=== PATIENT | male | born 1945 | race Caucasian/White ===

== ENCOUNTER 2017-04-20 19:45 | Emergency (ER) | payer MEDICARE, OTHER ==
[~2017-04-20] VITALS: Ht 180.3 cm; Wt 129.6 kg
[~2017-04-20 19:45] MED LIST: ASPI81TA3 PO; ATEN50TA PO; DULO60CA42 PO; ENAL20TA PO; ESOM40CA41 PO; FERR325T40 PO; TIOT18CA3 IH; TROS60CA4 PO; WARF2TAB7 PO; WARF4TAB6 PO; [UNRECOGNIZED DRUG - OTHER] IM
[2017-04-20 19:49] VITALS: BP 153/76; PULSE 74; RESP 16; O2SAT 99
[2017-04-20] MEDS ORDERED: HYDROmorphone 1 mg/mL Inj IVPUSH ONE (21:25)
[2017-04-20 21:52] LABS: APPEARANCE,URINE CLOUDY (CLEAR,HAZY); COLOR,URINE BLOODY (YELLOW); PH,URINE 5.5 (5.0-8.0)
--- NOTE | 2017-04-20 21:52 | ED.REPORT ---
HPI- Male Date of Service Apr 20, 2017 ED Provider: Jaren Hernandez DO Gaitan is a 71-year-old male with history of prostate cancer presents to the ED with pain due to their inability to urinate since 3 PM this afternoon. A similar incident happened 2 weeks ago the patient noted that he was able to pass a blood clot. In 2007 patient noted that a urologist had a split his urethra by trying to dilate him using metal rods. He ended up needing Reconstruction of his urethra and since then he has always passed blood clots. He notes that he is obstructed fairly often and he tends to cath himself but today he was unable to do so. Denies any fevers or chills. Nursing Notes Stated Complaint: CANNOT URINATE Chief Complaint: General Complaint Nursing Notes Reviewed: Yes Allergies: Coded Allergies: Penicillins (Verified Allergy, Unknown, 07/05/14) morphine (Verified Allergy, Unknown, 10/14/15) Scheduled Aspirin Chew (Aspirin Chew) 81 Mg Chew 81 MG PO DAILY Atenolol (Atenolol) 50 Mg Tablet 50 MG PO DAILY Ciprofloxacin (Ciprofloxacin) 500 Mg Tablet 500 MG PO BID Duloxetine (Cymbalta) 60 Mg Capsule. 60 MG PO DAILY Enalapril Maleate (Enalapril Maleate) 20 Mg Tablet 20 MG PO DAILY Esomeprazole Magnesium (Nexium) 40 Mg Capsule.dr 40 MG PO DAILY Ferrous Sulfate (Iron) 325 Mg Tablet 325 MG PO DAILY Leuprolide Acetate (Lupron Depot) 7.5 Mg Disp.syrin Unknown Dose IM 3 months Tiotropium [place] (Spiriva) 18 Mcg Cap.w.dev 18 MCG IH DAILY Trospium Chloride ER (Trospium Chloride ER) 60 Mg Cap.er.24h 60 MG PO DAILY Warfarin Sodium (Warfarin Sodium) 2 Mg Tablet 3 MG PO M,T,W,Th,F,Sa Warfarin Sodium (Warfarin Sodium) 4 Mg Tablet 4 MG PO [place] General Time Seen by MD: 20:28 Chief Complaint Unable to urinate Hx Obtained From: Patient Arrived By: Walk-in Onset Occurred: 5 - 8 hours ago Symptom Duration: Constant Location: : Suprapubic Quality: Sharp Severity: Maximum: Pain level 10 out of 10 Past Medical History Past Medical History Notes: Prostate cancer treated with radiation seeds 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 Obesity. He weighs 136 kg. 2. Diet-controlled diabetes. 3. Arthritis. 4. Chronic pain, primarily in right ankle and foot, related to old injury. 5. Obstructive uropathy. 6. Dyslipidemia. 7. Hypertension. 8. COPD. 9. Depression. 10. Gastroesophageal reflux disease. 11. Prostate cancer without bony mets. 12. DVT 13. PE Reports: COPD, Diabetes mellitus, GERD, Hypertension Past Surgical History 4 prior back surgeries. 2 R shoulder surgeries. R elbow, r foot. Prostate seed implant. Urethral reconstruction Smoking History Former Smoker Social History Alcohol Use: Denies alcohol use Drug Use: Denies drug use Ambulatory Status Independent Review of Systems Basic Review of Systems Eyes: Vision NL, No discharge ENT: Hearing NL, No pain, No nasal congestion, No pharyngeal pain Respiratory: No shortness of breath, No cough, No wheeze Cardiovascular: No chest pain, No dyspnea on exertion, No orthopnea, No parox noct dyspnea, No palpitations Hematologic: No bleeding, No bruising Neurologic: NL mental status, No weakness, No numbness Psychiatric: Normal thought content Constitutional: Denies: Chills, Fever GI: Denies: Nausea, Vomiting Male: Reports Hematuria, Denies Flank pain, Denies Penile discharge Musculoskeletal: Reports: Back pain Complete sys rev & neg: except as marked. Physical Exam Initial Vital Signs Vital Signs (First) Date Time Temp Pulse Resp B/P Pulse Ox O2 Delivery O2 Flow Rate FiO2 04/20/17 19:49 36.1 74 16 153/76 99 Room Air General/Constitutional: Well-developed, Well-nourished Head / Eyes: Atraumatic, Normocephalic, PERRL Respiratory: Breath sounds normal, Clear to auscultation, No respiratory distress Cardiovascular: Regular rate & rhythm, Heart sounds normal, Intact distal pulses Abdomen / GI: Soft, Non-tender, No guarding, No rebound, No distention Back: No CVA tenderness Lymphatic: No lymphadenopathy Extremities: Vascular intact, Neuro intact, No swelling, No tenderness Skin: Warm, Dry, No cyanosis Neurologic: Alert, Oriented, Nonfocal Psychiatric: Mood/affect normal, Behavior normal, Normal thought content Male Genitourinary: Inspection NL, Penis NL, No penile discharge, Testes NL, Cremasteric reflex NL, Epididymis NL, No mass, No hernia, No lesions or rash Interpretation & Diagnostics Lab Results Interpretation Result Diagram: 04/20/17221104/20/172211 Test 04/20/17 21:37 04/20/17 21:41 04/20/17 22:12 Hold Urine Received (Received) Urine Color Bloody (YELLOW) Urine Appearance Cloudy (CLEAR,HAZY) Urine pH 5.5 (5.0-8.0) Urine Specific [place] 1.020 (1.003-1.035) Urine Protein 100mg/dL (NEG,TRACE) Urine Glucose (UA) Negativemg/dL (NEGATIVE) Urine Ketones Negativemg/dL (NEGATIVE) Urine Occult Blood Large (NEGATIVE) Urine Nitrite Positive (NEGATIVE) Urine Bilirubin Negative (NEGATIVE) Urine Urobilinogen 1.0mg/dL (NORMAL) Urine Leukocyte Esterase Trace (NEGATIVE) Urine RBC 11-50/hpf (0-2) Urine WBC 0-5/hpf (0-5) Urine Epithelial Cells Few/hpf (NONE-MOD) Urine Crystals None seen (NONE SEEN) Urine Bacteria Few/hpf (NONE-FEW) Urine Hyaline Casts None/lpf (NONE) Urine Granular Casts None seen (NONE SEEN) Urine Waxy Casts None seen (NONE SEEN) Urine Red Blood Cell Casts None seen (NONE SEEN) Urine White Blood Cell Casts None seen (NONE SEEN) Urine Mucus None seen (None Seen) Urine Trichomonas None seen (NONE SEEN) Urine Yeast None (NONE SEEN) Urinalysis Comment None Urine Culture Reflexed Indicated White Blood Count 10.5th/mm3 (3.8-10.1) Red Blood Count 4.10mil/mm3 (4.40-5.80) Hemoglobin 12.3g/dL (13.8-17.2) Hematocrit 36.5% (41.0-50.0) Mean Corpuscular Volume 89.0fL (81-100) Mean Corpuscular Hemoglobin 30.0pg (27.0-35.0) Mean Corpuscular Hemoglobin Concent 33.7% (32.0-37.0) Red Cell Distribution Width 13.1% (12.3-15.4) Platelet Count 190bil/L (150-400) Neutrophils (%) (Auto) 76.6% (40-74) Lymphocytes (%) (Auto) 13.1% (14-46) Monocytes (%) (Auto) 7.0% (4-12) Eosinophils (%) (Auto) 2.4% (0-5) Basophils (%) (Auto) 0.7% (0-3) Prothrombin Time 29.0sec (8.1-12.5) Prothromb Time International Ratio 2.66ratio Sodium Level 137mEq/L (134-144) Potassium Level 4.9mEq/L (3.5-5.2) Chloride Level 103mEq/L (97-108) Carbon Dioxide Level 23mmol/L (18-29) Blood Urea Nitrogen 20mg/dL (8-27) Creatinine 1.02mg/dL (0.76-1.27) Estimat Glomerular Filtration Rate 77mL/min (>59) Glucose Level 138mg/dL (60-99) Calcium Level 9.2mg/dL (8.5-10.1) Total Bilirubin 0.3mg/dL (0.0-1.2) Aspartate Amino Transf (AST/SGOT) 12U/L (0-50) Alanine Aminotransferase (ALT/SGPT) 11U/L (0-44) Alkaline Phosphatase 44U/L (25-160) Total Protein 6.9g/dL (6.4-8.4) Albumin 3.8g/dL (3.4-5.0) Hold Lopez Top Tube Received (Received) Re-Eval/Medical Decision Med Decision/Clinical Course Arnie is a 71-year-old male with a history of outflow obstruction either due to prostate cancer or blood clots. Today he is unable to cath himself at home. We are able to cath him in ED. His urine was fatuma in color. He denies any fevers, chills, CVA tenderness, or any other sort of pain. We ordered a UA and make sure he does not have an infection. Discharge & Departure Impression: Primary Impression: Urinary (tract) obstruction Additional Impressions: Acute prostatitis with hematuria UTI (urinary tract infection) Urinary tract infection type: acute cystitis Hematuria presence: with hematuria Qualified Code: N30.01 - Acute cystitis with hematuria Disposition: Home Discharge Condition All VS Reviewed: Yes Condition: Stable Patient Instructions: Prostatitis (ED) Additional Instructions: Today we placed a Ramachandran catheter to relieve your urinary obstruction. Leave the catheter in for one week and follow-up with urology for removal. Given your referral for urology and call them on Saturday. Today your urine also shows that you have an infection. We will be treating you with an antibiotic called ciprofloxacin. Take the antibiotic twice a day for 7 days. This antibiotic will react with your warfarin so I want you to get your INR checked on Saturday, Saturday, and Saturday. Referrals: Jose Olivier MD (PCP) Christine Mraia MD Attending Statment I took a history of physical examination. I assisted my resident placing the Ramachandran catheter. 71-year-old male with acute urine retention. Most likely prostatitis/UTI. We will place him on ciprofloxacin. He is on warfarin so therefore while his INR checked every 48 hours was on the antibiotics. Urology referral given. I otherwise agree with the note is written about Marily Tobias DO Apr 20, 2017 21:51 Jaren Hernandez DO Apr 21, 2017 04:00
[2017-04-20 21:53] LABS: OCCULT BLOOD,URINE LARGE (NEGATIVE)
[2017-04-20 22:21] LABS: BASOPHILS % (AUTO) 0.7 % (0-3); EOSINOPHILS % (AUTO) 2.4 % (0-5); NEUTROPHILS % (AUTO) 76.6 % (40-74); Platelet Count 190 bil/L (150-400)
[2017-04-20 22:38] LABS: INR 2.66 ratio
[2017-04-20] MEDS ORDERED: CIPR-198 PO (23:19)
[2017-04-20 23:46] VITALS: BP 99/58; PULSE 66; RESP 18; O2SAT 97
== END 2017-04-20 23:48 | disposition home or self-care (01) ==
LOC: SED 19:49
DX: N13.8 Other obstructive and reflux uropathy (principal); N41.0 Acute prostatitis; N30.01 Acute cystitis with hematuria; E11.9 Type 2 diabetes mellitus without complications; E78.5 Hyperlipidemia, unspecified; I10 Essential (primary) hypertension; J44.9 Chronic obstructive pulmonary disease, unspecified; K21.9 Gastro-esophageal reflux disease without esophagitis; Z87.891 Personal history of nicotine dependence; Z85.46 Personal history of malignant neoplasm of prostate; Z86.718 Personal history of other venous thrombosis and embolism; Z79.01 Long term (current) use of anticoagulants; Z79.82 Long term (current) use of aspirin; Z88.0 Allergy status to penicillin; Z88.5 Allergy status to narcotic agent

== ENCOUNTER 2017-04-22 16:39 | Emergency (ER) | payer MEDICARE, OTHER ==
[~2017-04-22] VITALS: Ht 180.3 cm; Wt 129.6 kg
[~2017-04-22 16:39] MED LIST changes: +CIPR-198 PO
[2017-04-22 16:46] VITALS: BP 107/63; PULSE 79; RESP 18; O2SAT 97
--- NOTE | 2017-04-22 17:32 | ED.REPORT ---
HPI-General Illness Date of Service Apr 22, 2017 ED Provider: Isaias Bledsoe MD The pt is a 71 y/o male w/ a hx of diabetes, obstructive uropathy, dyslipidemia , HTN, COPD, depression, COPD, prostate cancer, and an urethral reconstruction presenting to the ED because is catheter has fallen out of the correct position. The pt describes urinating around his catheter. He rates the pain he is experiencing as a 9/10. The pt also reports a burning sensation in his bladder. The pt was here in the ED 2 days ago due to an inability to urinate and a Miranda catheter was placed. Nursing Notes Stated Complaint: CATHETER PLUGGED/PLACED SAT Chief Complaint: Displaced catheter Nursing Notes Reviewed: Yes (eBillme not reconciled) Allergies: Coded Allergies: Penicillins (Verified Allergy, Unknown, 07/05/14) morphine (Verified Allergy, Unknown, 10/14/15) Scheduled Aspirin Chew (Aspirin Chew) 81 Mg Chew 81 MG PO DAILY Atenolol (Atenolol) 50 Mg Tablet 50 MG PO DAILY Ciprofloxacin (Ciprofloxacin) 500 Mg Tablet 500 MG PO BID Duloxetine (Cymbalta) 60 Mg Capsule.dr 60 MG PO DAILY Enalapril Maleate (Enalapril Maleate) 20 Mg Tablet 20 MG PO DAILY Esomeprazole Magnesium (Nexium) 40 Mg Capsule.dr 40 MG PO DAILY Ferrous Sulfate (Iron) 325 Mg Tablet 325 MG PO DAILY Leuprolide Acetate (Lupron Depot) 7.5 Mg Disp.syrin Unknown Dose IM 3 months Tiotropium [place] (Spiriva) 18 Mcg Cap.w.dev 18 MCG IH DAILY Trospium Chloride ER (Trospium Chloride ER) 60 Mg Cap.er.24h 60 MG PO DAILY Warfarin Sodium (Warfarin Sodium) 2 Mg Tablet 3 MG PO M,T,W,Th,F,Sa Warfarin Sodium (Warfarin Sodium) 4 Mg Tablet 4 MG PO [place] General Time Seen by MD: 17:30 Chief Complaint Other (Displaced catheter ) Hx Obtained From: Patient Arrived By: Walk-in Sudden in Onset?: Yes Onset Occurred: Just prior to arrival Recent Healthcare: No recent hospitalization, Recent doctor visit Similar Sx Previous: No Past Medical History Past Medical History Notes: Prostate cancer treated with radiation seeds 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 Obesity. He weighs 136 kg. 2. Diet-controlled diabetes. 3. Arthritis. 4. Chronic pain, primarily in right ankle and foot, related to old injury. 5. Obstructive uropathy. 6. Dyslipidemia. 7. Hypertension. 8. COPD. 9. Depression. 10. Gastroesophageal reflux disease. 11. Prostate cancer without bony mets. 12. DVT 13. PE Reports: COPD, Diabetes mellitus, GERD, Hypertension Past Surgical History 4 prior back surgeries. 2 R shoulder surgeries. R elbow, r foot. Prostate seed implant. Urethral reconstruction Smoking History Former Smoker Social History Alcohol Use: Denies alcohol use Drug Use: Denies drug use Ambulatory Status Independent Review of Systems Penile pain due to displaced catheter; Burning sensation in bladder; Complete sys rev & neg: except as marked. Physical Exam Vital Signs Vital Signs Date Time Temp Pulse Resp B/P Pulse Ox O2 Delivery O2 Flow Rate FiO2 04/22/17 21:20 36.1 74 20 81/ 99 Room Air 04/22/17 16:46 79 18 107/63 97 Room Air Initial VS: Reviewed, Unavailable (no temp, ordered) Head / Eyes: Atraumatic, Normocephalic, PERRL ENT: Mucous membranes moist, Conjunctiva normal, No scleral icterus Neck: Supple, Non-tender, Full range of motion Respiratory: Breath sounds normal, Clear to auscultation, No respiratory distress Cardiovascular: Regular rate & rhythm, Heart sounds normal, Intact distal pulses Extremities: Vascular intact, Neuro intact, No swelling, No tenderness Skin: Warm, Dry, No cyanosis Neurologic: Alert, Oriented, Nonfocal Psychiatric: Mood/affect normal, Behavior normal, Normal thought content General/Constitutional: Awake, Alert Appearance / Presentation: Positive: Obese Male Genitourinary: Testes NL Miranda catheter in place w/ only a trace amount of darkish urine No gross hematuria; Re-Eval/Medical Decision Med Decision/Clinical Course This is a 71-year-old male with BPH he developed urinary retention of heart Miranda placement several days ago, he reports developed some discomfort and leaking around the Miranda this evening, so came to the ED. The Miranda was flushed, a small clot was removed, and the patient is improved. There is some trace hematuria gross hematuria. Culture from this visit was negative. The patient remained concerned, so was observed, but the Miranda continued to empty normally, urine was clear, follow-up ultrasounds and bladder scans demonstrated empty ladder with no evidence of current obstruction. Some funny indication for additional intervention this time. Reassurance provided. Patient was close to return if he develops new or concerning symptoms. And is discharged in improved condition. He is to follow-up with the urologist as planned Source of Hx: Old records Time of Eval: 20:15 Re-Evaluation/Progress Note: Pt rechecked. Pt feels better than he felt prior to arrival. F/U instructions and RTER warnings given. All questions addressed. Counseled Regarding: Diagnosis, Lab results, Need for follow-up, When/why to return to ED Discharge & Departure Primary Impression: Complication, blocked Miranda catheter Encounter type: initial encounter Qualified Code: T83.091A - Other mechanical complication of indwelling urethral catheter, initial encounter Disposition: Home Discharge Condition All VS Reviewed: Yes Condition: Stable Additional Instructions: 1. Your miranda was obstructed and was cleared by flushing in the department. 2. Continue to leave in place. 3. Return again if new or worsening symptoms 4. Keep the appointment with the urologist next week. Referrals: Jose Olivier MD (PCP) Scribe Attestation Portions of this note were transcribed by Shine Jackson. I, Dr. Bledsoe personally performed the history, physical exam and medical decision-making; I reviewed and confirmed the accuracy of the information in the transcribed note. copies to: Jose Olivier MD, Matthew F MD Apr 22, 2017 17:32 Shine Jackson Apr 22, 2017 18:22
[2017-04-22] MEDS ORDERED: Lidocaine 2% 6mL Topical Jelly TOPICAL ONE (18:50)
[2017-04-22] MEDS ORDERED: Phenazopyridine 97.5 mg Tablet PO ONE (20:20)
[2017-04-22 21:20] VITALS: BP_SYST 81; PULSE 74; RESP 20; O2SAT 99
== END 2017-04-22 22:13 | disposition home or self-care (01) ==
LOC: SED 16:39
DX: T83.091A Other mechanical complication of indwelling urethral catheter, initial encounter (principal); X58.XXXA Exposure to other specified factors, initial encounter; Y84.6 Urinary catheterization as the cause of abnormal reaction of the patient, or of later complication, without mention of misadventure at the time of the procedure; Y92.89 Other specified places as the place of occurrence of the external cause; Y99.8 Other external cause status; I10 Essential (primary) hypertension; K21.9 Gastro-esophageal reflux disease without esophagitis; Z86.711 Personal history of pulmonary embolism; Z85.46 Personal history of malignant neoplasm of prostate; E11.9 Type 2 diabetes mellitus without complications; Z87.891 Personal history of nicotine dependence; Z86.718 Personal history of other venous thrombosis and embolism; Z88.0 Allergy status to penicillin; Z79.82 Long term (current) use of aspirin; Z79.01 Long term (current) use of anticoagulants; Z88.5 Allergy status to narcotic agent

== ENCOUNTER 2017-04-25 15:59 | Emergency (ER) | payer MEDICARE, OTHER ==
[~2017-04-25] VITALS: Ht 180.3 cm; Wt 130.0 kg
[2017-04-25 16:16] VITALS: BP 95/57; PULSE 73; RESP 18; O2SAT 98
--- NOTE | 2017-04-25 17:55 | ED.REPORT ---
HPI- Male Date of Service Apr 25, 2017 ED Provider: Tito Mccullough PA-C Arnie is a 71-year-old male with a history of prostate cancer who presents emergency Department with a chief complaint of a blocked Ramachandran catheter. Patient reports having the Ramachandran placed due to a urethral blockage by a large prostate. Seen in this department several days ago for similar complaint of a blocked Ramachandran catheter. Denies fever, chills, abdominal pain, vomiting, hematuria. Nursing Notes Stated Complaint: BLOCKED CATHATER Chief Complaint: General Complaint Nursing Notes Reviewed: Yes Allergies: Coded Allergies: Penicillins (Verified Allergy, Unknown, 04/25/17) morphine (Verified Allergy, Unknown, 04/25/17) Scheduled Aspirin Chew (Aspirin Chew) 81 Mg Chew 81 MG PO DAILY Atenolol (Atenolol) 50 Mg Tablet 50 MG PO DAILY Ciprofloxacin (Ciprofloxacin) 500 Mg Tablet 500 MG PO BID Duloxetine (Cymbalta) 60 Mg Capsule.dr 60 MG PO DAILY Enalapril Maleate (Enalapril Maleate) 20 Mg Tablet 20 MG PO DAILY Esomeprazole [place] (Nexium) 40 Mg Capsule.dr 40 MG PO DAILY Ferrous Sulfate (Iron) 325 Mg Tablet 325 MG PO DAILY Leuprolide Acetate (Lupron Depot) 7.5 Mg Disp.syrin Unknown Dose IM 3 months Tiotropium [place] (Spiriva) 18 Mcg Cap.w.dev 18 MCG IH DAILY Trospium Chloride ER (Trospium Chloride ER) 60 Mg Cap.er.24h 60 MG PO DAILY Warfarin Sodium (Warfarin Sodium) 2 Mg Tablet 3 MG PO M,T,W,Th,F,Sa Warfarin Sodium (Warfarin Sodium) 4 Mg Tablet 4 MG PO [place] General Time Seen by MD: 17:33 Chief Complaint Other (blocked Ramachandran) Past Medical History Past Medical History Notes: Prostate cancer treated with radiation seeds 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 Obesity. He weighs 136 kg. 2. Diet-controlled diabetes. 3. Arthritis. 4. Chronic pain, primarily in right ankle and foot, related to old injury. 5. Obstructive uropathy. 6. Dyslipidemia. 7. Hypertension. 8. COPD. 9. Depression. 10. Gastroesophageal reflux disease. 11. Prostate cancer without bony mets. 12. DVT 13. PE Reports: COPD, Diabetes mellitus, GERD, Hypertension Past Surgical History 4 prior back surgeries. 2 R shoulder surgeries. R elbow, r foot. Prostate seed implant. Urethral reconstruction Smoking History Former Smoker Social History Alcohol Use: Denies alcohol use Drug Use: Denies drug use Ambulatory Status Independent Review of Systems Review of Systems Note: Negative unless stated otherwise in history of present illness Physical Exam General: Well appearing, well developed, obese, no acute distress. : Uncircumcised penis without discharge or lesions. Catheter is clear without obvious clots. Leg bag has a small amount of straw-colored urine in it. Head: Atraumatic, normocephalic. Eyes: No scleral icterus or injection. No discharge. Vision grossly intact. ENT: Voice clear, hearing grossly intact. Respiratory: No respiratory distress, no increased work of breathing. Speaks in complete sentences. Abdominal: Obese abdomen, mild suprapubic tenderness without guarding or rebound. Skin: Warm and dry. Neurological: Grossly nonfocal. Psychological: alert and oriented. Speech appropriate, linear and logical. Behavior appropriate. Initial Vital Signs Vital Signs (First) Date Time Temp Pulse Resp B/P Pulse Ox O2 Delivery O2 Flow Rate FiO2 04/25/17 16:16 36.0 73 18 95/57 98 Room Air Low blood pressure. Re-Eval/Medical Decision Med Decision/Clinical Course 71-year-old male with a history of prostate cancer presents for blocked Ramachandran catheter. Seen this department for similar several days ago. Has plans to see urology next week. Physical examination reveals mild suprapubic tenderness, slight hypotension. Otherwise benign. Review of records indicates that his blood pressure is is only slightly below baseline relative to readings taken over the last year. I do not believe this represents sepsis or a dangerous condition. Advise follow-up with primary care or cardiology. Ramachandran catheter is flushed and patent. Advised regarding primary care and urology follow-up, provided emergency return precautions. Patient verbalized understanding of, and consent to, the plan. Discharge & Departure Impression: Primary Impression: Complication, blocked Ramachandran catheter Encounter type: initial encounter Qualified Code: T83.091A - Other mechanical complication of indwelling urethral catheter, initial encounter Additional Impression: Low blood pressure reading Disposition: Home Discharge Condition All VS Reviewed: Yes Additional Instructions: Evaluation in the emergency department for a blocked Ramachandran catheter includes interview and physical examination. We have unblocked your Ramachandran catheter. Please follow up as planned with urology next week. I also note that your blood pressure is a little bit low. I recommend following up with your primary care provider or weekday babysitter in the next day or 2 to discuss changing your medications. Return to the emergency department for any new or worsening symptoms. Referrals: Jose Olivier MD (PCP) EDSupervising Provider for APC: Gio Bermudez MD copies to: Jose Olivier MD, Seth PA-C Apr 25, 2017 17:55
[2017-04-25 20:07] VITALS: BP 122/84; PULSE 72; RESP 16; O2SAT 100
== END 2017-04-25 20:09 | disposition home or self-care (01) ==
LOC: SED 15:59
DX: T83.091A Other mechanical complication of indwelling urethral catheter, initial encounter (principal); I95.1 Orthostatic hypotension; Y84.6 Urinary catheterization as the cause of abnormal reaction of the patient, or of later complication, without mention of misadventure at the time of the procedure; Y93.89 Activity, other specified; Y99.8 Other external cause status; Y92.008 Other place in unspecified non-institutional (private) residence as the place of occurrence of the external cause; E78.5 Hyperlipidemia, unspecified; I10 Essential (primary) hypertension; E11.9 Type 2 diabetes mellitus without complications; J44.9 Chronic obstructive pulmonary disease, unspecified; K21.9 Gastro-esophageal reflux disease without esophagitis; Z86.718 Personal history of other venous thrombosis and embolism; Z85.46 Personal history of malignant neoplasm of prostate; Z87.891 Personal history of nicotine dependence; Z79.01 Long term (current) use of anticoagulants; Z79.82 Long term (current) use of aspirin; Z88.0 Allergy status to penicillin; Z88.5 Allergy status to narcotic agent